=== PATIENT | male | born 2000 ===

== ENCOUNTER 2018-09-03 08:14 | Emergency (ER) | payer OTHER ==
[~2018-09-03] VITALS: Ht 195.6 cm; Wt 106.6 kg
== END 2018-09-03 09:28 | disposition home or self-care (01) ==
LOC: ER 08:14
DX: S39.012A Strain of muscle, fascia and tendon of lower back, initial encounter (principal); X50.1XXA Overexertion from prolonged static or awkward postures, initial encounter; Y93.89 Activity, other specified; Y92.89 Other specified places as the place of occurrence of the external cause; Y99.8 Other external cause status